=== PATIENT | male | born 1945 | race Caucasian/White ===

== ENCOUNTER 2019-02-22 07:15 | Outpatient (CLI) | payer MEDICARE ==
--- NOTE | 2019-02-22 09:09 | RAD ---
EXAM: Two views chest PROVIDED CLINICAL HISTORY: Preoperative evaluation. COMPARISON: 04/25/2006 FINDINGS: Cardiac silhouette is at the upper limits of normal in size. The pulmonary vasculature is within norm al limits. The lungs are clear. Mild degenerative changes are seen in the spine. There has been no significant interval change when compared to the prior exam. IMPRESSION: No acute cardiopulmonary process.
[2019-02-22 09:56] LABS: #Eosinphils 0.2 thou/uL (0.0-0.7); #Lymphocytes 1.6 thou/uL (1.20-3.40); #Monocytes 0.6 thou/uL (0.11-0.59); #Neutrophils 3.6 thou/uL (1.40-6.50); %Basophils 0.2 % (0.0-1.0); %Eosinophils 2.9 % (0.0-10.0); %Lymphocytes 26.7 % (21.0-51.0); %Monocytes 9.7 % (0.0-10.0); %Neutrophils 60.5 % (42.0-75.0); Hemoglobin 14.8 g/dL (14.0-18.0); Mean Corpuscular HGB CONC 33.3 g/dL (32.0-36.0); Mean Corpuscular Hemoglobin 31.7 pg (27.0-31.0); Mean Corpuscular Volume 95.2 fL (78.0-98.0); Mean Platelet Volume 7.8 fL (7.4-10.4); Platelet Count 177 thou/uL (130-400); RBC Distribution Width 12.6 % (11.5-14.5); Red Blood Cell (RBC) Count 4.65 mill/uL (4.70-6.10)
[2019-02-22 10:20] LABS: Anion Gap 11 mmol/L (10-20); BUN (Urea Nitrogen) 15 mg/dL (8.4-25.7); Calc. Creatinine Clearance 0 mL/min (70-130); Calcium 8.8 mg/dL (7.8-10.44); Carbon Dioxide 26 mmol/L (23-31); Chloride 108 mmol/L (98-107); Estimated GFR-MDRD 89; Glucose 94 mg/dL (83-110); Potassium 3.9 mmol/L (3.5-5.1); Sodium 141 mmol/L (136-145)
== END 2019-02-22 07:16 | disposition home or self-care (01) ==
LOC: LABBT 07:15
PROVIDERS: ATTEND Specialist
DX: Z01.818 Encounter for other preprocedural examination (principal); K42.9 Umbilical hernia without obstruction or gangrene
CPT/HCPCS: 71046; 80048; 85025; 93005; 93010

== ENCOUNTER 2019-02-25 07:49 | Day surgery (SDC) | payer MEDICARE ==
[2019-02-22 08:22] VITALS: BMI 28.3
[2019-02-25] MEDS ORDERED: Lidocaine 1% w/Epinephrine 1:100K 20 ML VIAL ONE (08:54)
[2019-02-25] MEDS ORDERED: Bupivacaine 0.25% HCL 30 ML VIAL ONE (08:54)
[2019-02-25] MEDS ORDERED: Fentanyl 100 MCG/2 ML VIAL ONE ×3 (09:20→11:17)
[2019-02-25] MEDS ORDERED: Ondansetron HCl/PF 4 MG/2 ML Vial IVP PRN (11:16)
[2019-02-25] MEDS ORDERED: Non-Formulary Medication 1 EACH PO PRN (11:16)
[2019-02-25] MEDS ORDERED: Promethazine HCl 25 MG/ML VIAL IM/IV PRN (11:16)
[2019-02-25] MEDS ORDERED: HYDROcodone/Acetaminophen 5/325 mg Tablet ONE (12:23)
[2019-02-25] MEDS ORDERED: Lidocaine 1% PF 5 ML VIAL ONE (12:39)
[2019-02-25] MEDS ORDERED: Dexamethasone 20 MG/5 ML VIAL ONE (12:39)
[2019-02-25] MEDS ORDERED: PROPOFOL 200 MG/20 ML VIAL ONE (12:39)
[2019-02-25] MEDS ORDERED: ePHEDrine/0.9% NaCl/PF SYRINGE 50 mg/10 ml ONE (12:39)
[2019-02-25] MEDS ORDERED: Ondansetron PF 4 MG/2 ML Vial ONE (12:39)
--- NOTE | 2019-02-26 13:25 | OP ---
DATE OF PROCEDURE: 02/25/2019 PREOPERATIVE DIAGNOSIS: Umbilical hernia. POSTOPERATIVE DIAGNOSIS: Umbilical hernia. TEST PERFORMED: Umbilical hernia repair with mesh using 6.4 cm Ventralex patch. ANESTHESIA: General endotracheal. INDICATIONS: Patient is a 73-year-old white male. He presents with an enlarging and symptomatic hernia at his umbilicus. He is taken to the operating room at this time for repair. DESCRIPTION OF OPERATION: Informed consent was obtained. Patient was taken to the operating room, where general anesthesia was obtained with the patient in supine position. Abdomen was prepped with ChloraPrep and draped in sterile fashion. Local anesthetic was infiltrated with 0.25% Marcaine with epinephrine. Infraumbilical curvilinear incision was created and dissection was carried through skin and subcutaneous tissue down to the fascia. The umbilicus was then dissected off the underlying hernia sac and fascia and reflected superiorly. The hernia defect was carefully dissected circumferentially. The hernia contents were inverted into the preperitoneal space. The preperitoneal space was then bluntly dissected. A 6.4 cm Ventralex mesh patch was obtained and placed into the preperitoneal space. It was pulled snugly against the posterior aspect of the fascia. The mesh tails were secured to the anterior aspect of the fascia superiorly and inferiorly with single interrupted sutures of 0 Prolene. The lateral aspects of the defect were closed with simple interrupted sutures of 0 Prolene, incorporating bites of the anterior leaflet of the mesh. The umbilicus was secured down to the fascia with 2 interrupted sutures of 3-0 Vicryl. The wound was closed in layers with 3-0 and 4-0 Monocryl. Dermabond was placed externally. Cotton balls were placed within the umbilicus and a pressure dressing was created using the Tegaderm and aspiration of the air within the cotton balls. There were no complications. Blood loss negligible. Patient tolerated the procedure well and was taken to recovery room in stable condition. Job ID: [id number]
== END 2019-02-25 13:00 | disposition home or self-care (01) ==
LOC: SDC 07:49
PROVIDERS: ATTEND Specialist
PROC: 0WUF0JZ Supplement Abdominal Wall with Synthetic Substitute, Open Approach (ICD-10-PCS; principal; 2019-02-25)
DX: K42.9 Umbilical hernia without obstruction or gangrene (principal); E89.0 Postprocedural hypothyroidism; N40.0 Benign prostatic hyperplasia without lower urinary tract symptoms; E11.9 Type 2 diabetes mellitus without complications; I10 Essential (primary) hypertension; M19.90 Unspecified osteoarthritis, unspecified site; E78.5 Hyperlipidemia, unspecified; Z79.84 Long term (current) use of oral hypoglycemic drugs; Z79.899 Other long term (current) drug therapy; Z88.0 Allergy status to penicillin
CPT/HCPCS: J0690; J1100; J2001; J2405; J2704; J3010; S0020

== ENCOUNTER 2021-07-17 05:30 | Observation (INO) | payer MEDICARE ==
[2021-07-17 06:00] LABS: #Basophils 0.1 thou/uL (0.0-0.2); #Eosinphils 0.3 thou/uL (0.0-0.7); #Lymphocytes 2.6 thou/uL (1.20-3.40); #Monocytes 0.6 thou/uL (0.11-0.59); %Basophils 0.8 % (0.0-1.0); %Eosinophils 3.6 % (0.0-10.0); %Lymphocytes 34.2 % (21.0-51.0); %Monocytes 7.9 % (0.0-10.0); %Neutrophils 53.4 % (42.0-75.0); Hemoglobin 15.5 g/dL (14.0-18.0); Mean Corpuscular HGB CONC 33.2 g/dL (32.0-36.0); Mean Corpuscular Volume 96.1 fL (78.0-98.0); Mean Platelet Volume 7.3 fL (7.4-10.4); Platelet Count 227 thou/uL (130-400); RBC Distribution Width 12.8 % (11.5-14.5); Red Blood Cell (RBC) Count 4.84 mill/uL (4.70-6.10); White Blood Cell (WBC) Count 7.5 thou/uL (4.8-10.8)
[2021-07-17] MEDS ORDERED: Ondansetron ODT 4 MG TAB ONE (06:15)
[2021-07-17] MEDS ORDERED: Dicyclomine 20 MG/2 ML VIAL ONE (06:15)
[2021-07-17 06:22] LABS: ALT (SGPT) 18 U/L (8-55); AST (SGOT) 19 U/L (5-34); Albumin 4.5 g/dL (3.4-4.8); Alkaline Phosphatase 67 U/L (40-110); Anion Gap 14 mmol/L (10-20); BUN (Urea Nitrogen) 26 mg/dL (8.4-25.7); Calc. Creatinine Clearance 0 mL/min (70-130); Calcium 9.4 mg/dL (7.8-10.44); Carbon Dioxide 21 mmol/L (23-31); Chloride 108 mmol/L (98-107); Globulin 2.5 g/dL (2.4-3.5); Glucose 98 mg/dL (83-110); Potassium 3.6 mmol/L (3.5-5.1); Sodium 139 mmol/L (136-145)
[2021-07-17] MEDS ORDERED: Aspirin Chewable 81 MG TAB ONE (06:33)
[2021-07-17 07:18] LABS: Bilirubin Negative (Negative); Blood, Urine Negative (Negative); Clarity Clear (Clear); Glucose, Urine (Dipstick) Normal (Negative); Ketone, Urine 20 mg/dL (Negative); Leukocyte Negative Leu/uL (Negative); Nitrite Negative (Negative); Protein, Urine (Dipstick) Negative (Neg-Trace); Specific Gravity, Urine 1.021 (1.002-1.036); Urobilinogen Normal mg/dL (Less than 2)
[2021-07-17] MEDS ORDERED: Nitroglycerin 0.4 MG TAB (25 Tab Bottle) SL PRN (08:34)
[2021-07-17] MEDS ORDERED: Acetaminophen 325 MG TAB PO PRN (08:35)
[2021-07-17] MEDS ORDERED: Lorazepam 2 MG/ML VIAL SLOW IVP PRN (08:35)
[2021-07-17] MEDS ORDERED: Ondansetron PF 4 MG/2 ML Vial IVP PRN (08:36)
[2021-07-17] MEDS ORDERED: Insulin Regular 300 UNITS/3 ML VIAL SC PRN ×2 (08:45)
[2021-07-17] MEDS ORDERED: Sodium Chloride 0.9% 1,000 ML IV SCH (08:45)
[2021-07-17] MEDS ORDERED: Dextrose 50% Abboject 50 ML SYRINGE IVP PRN (08:45)
[2021-07-17] MEDS ORDERED: Dextrose 5% in Water 1,000 ML IV PRN (08:45)
[2021-07-17] MEDS ORDERED: Alogliptin 25 MG TAB PO SCH (09:00)
[2021-07-17] MEDS ORDERED: busPIRone HCl 5 MG TAB PO SCH (09:00)
[2021-07-17] MEDS ORDERED: Pantoprazole 40 MG VIAL IVP SCH (09:00)
[2021-07-17] MEDS ORDERED: Losartan 25 MG TAB PO SCH (09:00)
[2021-07-17 10:13] LABS: Troponin I Less than 0.010 ng/mL (< 0.028)
[2021-07-17 12:18] LABS: Troponin I Less than 0.010 ng/mL (< 0.028)
[2021-07-17 14:44] VITALS: BMI 27.4
[2021-07-17 14:46] VITALS: BP 151/72; TEMP 97.4
[2021-07-17] MEDS ORDERED: Rosuvastatin 20 MG TAB PO SCH (21:00)
== END 2021-07-17 15:15 | disposition left against medical advice (07) ==
LOC: ERS 05:30 → ERHOLD 07:55 → 2SW 14:38
PROVIDERS: ADMIT Specialist; ATTEND Specialist
DX: R06.00 Dyspnea, unspecified (principal); R11.0 Nausea; R10.30 Lower abdominal pain, unspecified; E11.9 Type 2 diabetes mellitus without complications; I10 Essential (primary) hypertension; Z53.29 Procedure and treatment not carried out because of patient's decision for other reasons; Z79.2 Long term (current) use of antibiotics; Z79.84 Long term (current) use of oral hypoglycemic drugs; Z79.890 Hormone replacement therapy; Z79.899 Other long term (current) drug therapy; Z88.0 Allergy status to penicillin
CPT/HCPCS: 36415; 36416; 71045; 80053; 81003; 84484; 85025; 93005; 96372; G0378; J0500; Q0162

== ENCOUNTER 2021-09-28 10:11 | Outpatient (CLI) | payer MEDICARE | END 2021-09-28 10:12 | disposition home or self-care (01) | LOC: BICRAD 10:11 | PROVIDERS: ATTEND Specialist | DX: S69.92XA Unspecified injury of left wrist, hand and finger(s), initial encounter (principal) ==

== ENCOUNTER 2022-06-03 12:37 | Outpatient (CLI) | payer MEDICARE | END 2022-06-03 12:38 | disposition home or self-care (01) | LOC: TBSIIMAG 12:37 | PROVIDERS: ATTEND Anesthesiology Pain Medicine | DX: M48.062 Spinal stenosis, lumbar region with neurogenic claudication (principal); M47.816 Spondylosis without myelopathy or radiculopathy, lumbar region; M51.26 Other intervertebral disc displacement, lumbar region; M51.36 Other intervertebral disc degeneration, lumbar region | CPT/HCPCS: 72120; 72148 ==

== ENCOUNTER 2022-07-22 07:39 | Outpatient (CLI) | payer MEDICARE | END 2022-07-22 07:40 | disposition home or self-care (01) | LOC: TBSIIMAG 07:39 | PROVIDERS: ATTEND Anesthesiology Pain Medicine | DX: M47.22 Other spondylosis with radiculopathy, cervical region (principal); M50.121 Cervical disc disorder at C4-C5 level with radiculopathy; M48.02 Spinal stenosis, cervical region | CPT/HCPCS: 72052; 72141 ==